=== PATIENT | male | born 1935 | race Caucasian/White ===

== ENCOUNTER 2016-05-03 09:57 | Emergency (ER) | payer MEDICARE ==
[~2016-05-03 09:57] MED LIST: ASPIRIN CHEWABL81 MG PO; ATENOLOL25 MG PO; FOLIC ACID1 MG PO; LIPITOR20 MG PO; NORCO 5-325 TA1 EACH PO; PLAQUENIL200 M1 PO; PREDNISONE5 MG PO; PRILOSEC20 MG PO
[2016-09-30] MEDS ORDERED: CELEBREX200 MG PO (12:46)
[2016-09-30] MEDS ORDERED: LASIX40 MG PO (12:47)
[2016-09-30] MEDS ORDERED: SIMPONI50 MG/0.5 (14:03)
[2016-09-30] MEDS ORDERED: PERCOCET 5/3251 TAB PO (14:04)
[2016-09-30] MEDS ORDERED: MUCINEX 600MG600 MG PO (14:05)
[2016-09-30] MEDS ORDERED: XARELTO10 MG PO (14:05)
[2016-09-30] MEDS ORDERED: PROTONIX 40MG T40 MG PO (14:06)
[2016-09-30] MEDS ORDERED: FLOMAX0.4 MG PO (14:06)
[2016-09-30] MEDS ORDERED: CERTAGEN1 EACH PO (14:06)
[2016-09-30] MEDS ORDERED: FEOSOL325 MG PO (14:07)
[2016-09-30] MEDS ORDERED: DULCOLAX5 MG PO (14:07)
[2016-09-30] MEDS ORDERED: MILK OF MA400 MG/5 M PO (14:07)
[2016-09-30] MEDS ORDERED: SENOKOT-S TABL1 EACH PO (14:08)
[2016-09-30] MEDS ORDERED: LAXATIVE SUPPOS10 MG PR (14:08)
[2016-09-30] MEDS ORDERED: ACETAMINOPHEN325 MG PO (14:09)
== END 2016-05-03 11:51 | disposition home or self-care (01) ==
LOC: FER 09:57
DX: S41.112A Laceration without foreign body of left upper arm, initial encounter (principal); L03.114 Cellulitis of left upper limb; I51.9 Heart disease, unspecified; M06.9 Rheumatoid arthritis, unspecified; E78.5 Hyperlipidemia, unspecified; Z79.899 Other long term (current) drug therapy; Z95.5 Presence of coronary angioplasty implant and graft; W19.XXXA Unspecified fall, initial encounter
CPT/HCPCS: 86403; 87070; 87077; 87186; 87205; 99283

== ENCOUNTER 2016-07-25 14:12 | Emergency (ER) | payer MEDICARE ==
[2016-09-30] MEDS ORDERED: CELEBREX200 MG PO (12:46)
[2016-09-30] MEDS ORDERED: LASIX40 MG PO (12:47)
[2016-09-30] MEDS ORDERED: SIMPONI50 MG/0.5 (14:03)
[2016-09-30] MEDS ORDERED: PERCOCET 5/3251 TAB PO (14:04)
[2016-09-30] MEDS ORDERED: MUCINEX 600MG600 MG PO (14:05)
[2016-09-30] MEDS ORDERED: XARELTO10 MG PO (14:05)
[2016-09-30] MEDS ORDERED: FLOMAX0.4 MG PO (14:06)
[2016-09-30] MEDS ORDERED: PROTONIX 40MG T40 MG PO (14:06)
[2016-09-30] MEDS ORDERED: CERTAGEN1 EACH PO (14:06)
[2016-09-30] MEDS ORDERED: FEOSOL325 MG PO (14:07)
[2016-09-30] MEDS ORDERED: MILK OF MA400 MG/5 M PO (14:07)
[2016-09-30] MEDS ORDERED: DULCOLAX5 MG PO (14:07)
[2016-09-30] MEDS ORDERED: LAXATIVE SUPPOS10 MG PR (14:08)
[2016-09-30] MEDS ORDERED: SENOKOT-S TABL1 EACH PO (14:08)
[2016-09-30] MEDS ORDERED: ACETAMINOPHEN325 MG PO (14:09)
== END 2016-07-25 15:58 | disposition home or self-care (01) ==
LOC: FER 14:12
DX: S41.112A Laceration without foreign body of left upper arm, initial encounter (principal); S41.111A Laceration without foreign body of right upper arm, initial encounter; M06.9 Rheumatoid arthritis, unspecified; Z79.52 Long term (current) use of systemic steroids; Z79.1 Long term (current) use of non-steroidal anti-inflammatories (NSAID); Z79.899 Other long term (current) drug therapy; W19.XXXA Unspecified fall, initial encounter
CPT/HCPCS: 99283

== ENCOUNTER 2020-06-12 09:00 | Inpatient (IN) | payer MEDICARE ==
[~2020-06-12 09:00] MED LIST changes: +ACETAMINOPHEN325 MG PO; +CELEBREX200 MG PO; +CERTAGEN1 EACH PO; +DULCOLAX5 MG PO; +FEOSOL325 MG PO; +FLOMAX0.4 MG PO; +KEFLEX500 MG PO; +LASIX40 MG PO; +LAXATIVE SUPPOS10 MG PR; +MILK OF MA400 MG/5 M PO; +MUCINEX 600MG600 MG PO; +PERCOCET 5/3251 TAB PO; +PROTONIX 40MG T40 MG PO; +SENOKOT-S TABL1 EACH PO; +SIMPONI50 MG/0.5; +XARELTO10 MG PO
[2020-06-12 10:06] LABS: BASOPHIL 0.9 % (0-2); EOSINOPHIL 2.9 % (0-7); HCT 36.3 % (42.0-52.0); HGB 12.6 g/dl (13.2-18.0); LYMPHOCYTE 6.8 % (15-48); MCH 31.9 pg (25.0-31.0); MCHC 34.7 g/dL (32.0-36.0); MCV 91.9 fL (78.0-100.0); MONOCYTE 6.7 % (0-12); MPV 9.6 fL (6.0-9.5); NEUTROPHIL 82.5 % (41-80); NRBC 0; PLT 161 K/uL (150-400); RBC 3.95 M/uL (4.70-6.00); RDW 13.1 % (11.5-14.0); WBC 9.3 K/uL (4.0-10.5)
[2020-06-12 10:23] LABS: INR 1.22 (0.9-1.2); PROTHROMBIN TIME 14.6 SECONDS (11.4-13.6)
[2020-06-12 10:24] LABS: PTT 32.3 SECONDS (22.2-34.7)
[2020-06-12 10:37] LABS: BILIRUBIN - TOTAL 0.7 mg/dL (0.2-1.0); BUN/CREAT RATIO (CALC) 29.8 RATIO; CREATININE 0.84 mg/dL (0.67-1.17); GLOBULIN (CALCULATION) 4.2 g/dL; POTASSIUM 3.7 mmol/L (3.5-5.1); TOTAL PROTEIN 7.2 g/dL (6.4-8.2)
[2020-06-12] MEDS ORDERED: PRILOSEC20 MG PO (11:16)
[2020-06-12] MEDS ORDERED: FOLIC ACID1 MG PO (11:18)
[2020-06-12] MEDS ORDERED: HYDROXYCHLOROQ200 MG PO (11:19)
[2020-06-12] MEDS ORDERED: LIPITOR20 MG PO (11:19)
[2020-06-12] MEDS ORDERED: ASPIRIN EC81 MG PO (11:20)
[2020-06-12] MEDS ORDERED: ATENOLOL25 MG PO (11:20)
[2020-06-12] MEDS ORDERED: SIMPONI50 MG/0.5 IV (11:21)
[2020-06-12 23:07] LABS: BILIRUBIN NEGATIVE (NEGATIVE); BLOOD 2+ Ery/uL (NEGATIVE); CLARITY CLEAR (CLEAR); COLOR YELLOW (YELLOW); GLUCOSE (U) NORMAL (NORMAL); LEUKOCYTES NEGATIVE Leu/uL (NEGATIVE); NITRITE NEGATIVE (NEGATIVE); PROTEIN NEGATIVE (NEGATIVE); pH 7.5 (5.0-9.0)
[2020-06-12 23:15] LABS: BACTERIA TRACE; SQUAMOUS EPITHELIAL CELLS RARE; URINARY RBC 20-50; URINARY WBC RARE
[2020-06-13 06:10] LABS: HGB 13.2 g/dl (13.2-18.0); MCH 31.7 pg (25.0-31.0); MCHC 33.8 g/dL (32.0-36.0); MCV 93.5 fL (78.0-100.0); MPV 9.4 fL (6.0-9.5); RBC 4.17 M/uL (4.70-6.00); RDW 13.3 % (11.5-14.0); WBC 8.5 K/uL (4.0-10.5)
[2020-06-13 06:29] LABS: BUN/CREAT RATIO (CALC) 19.7 RATIO; CREATININE 0.76 mg/dL (0.67-1.17); POTASSIUM 4.3 mmol/L (3.5-5.1)
[2020-06-16 05:51] LABS: HCT 30.8 % (42.0-52.0); HGB 10.7 g/dl (13.2-18.0); MCHC 34.7 g/dL (32.0-36.0); MCV 92.2 fL (78.0-100.0); MPV 9.8 fL (6.0-9.5); RBC 3.34 M/uL (4.70-6.00); RDW 13.3 % (11.5-14.0); WBC 9.5 K/uL (4.0-10.5)
[2020-06-16 06:09] LABS: BUN/CREAT RATIO (CALC) 19.2 RATIO; CREATININE 0.73 mg/dL (0.67-1.17); POTASSIUM 3.2 mmol/L (3.5-5.1)
[2020-06-17 11:00] LABS: HCT 33.9 % (42.0-52.0); HGB 11.8 g/dl (13.2-18.0); MCH 31.7 pg (25.0-31.0); MCHC 34.8 g/dL (32.0-36.0); MCV 91.1 fL (78.0-100.0); MPV 9.8 fL (6.0-9.5); RBC 3.72 M/uL (4.70-6.00); RDW 13.1 % (11.5-14.0); WBC 12.6 K/uL (4.0-10.5)
[2020-06-17 11:23] LABS: BUN/CREAT RATIO (CALC) 21.9 RATIO; CREATININE 0.64 mg/dL (0.67-1.17); POTASSIUM 3.7 mmol/L (3.5-5.1)
[2020-06-18 07:05] LABS: BASOPHIL 0.5 % (0-2); EOSINOPHIL 1.5 % (0-7); HGB 10.4 g/dl (13.2-18.0); LYMPHOCYTE 5.7 % (15-48); MCHC 33.5 g/dL (32.0-36.0); MCV 92.5 fL (78.0-100.0); MONOCYTE 6.8 % (0-12); MPV 9.5 fL (6.0-9.5); NRBC 0; PLT 196 K/uL (150-400); RBC 3.35 M/uL (4.70-6.00); RDW 13.3 % (11.5-14.0); WBC 13.2 K/uL (4.0-10.5)
[2020-06-18 07:34] LABS: BUN/CREAT RATIO (CALC) 26.8 RATIO; CREATININE 0.71 mg/dL (0.67-1.17); POTASSIUM 3.8 mmol/L (3.5-5.1)
--- NOTE | 2020-06-18 12:47 | NUR ---
MET WITH PT. AND DAUGHTER, EITAN ([phone]. AVISED PT. THAT THE PHYSICAL THERAPIST HAD RECOMMENDED SENIOR CARE FACILITY. PT. CHOSE [facility]. REFERRAL MADE THROUGH [facility].
--- NOTE | 2020-06-18 12:53 | NUR ---
TC TO LIZ AT [facility]. ADVISED OF REFERRAL SENT THROUGH [facility].
--- NOTE | 2020-06-18 15:50 | NUR ---
TC FROM LIZ AT [facility], THEY CANNOT ACCEPT [facility]. CONTACTED [facility] THEY ARE ON A BED HOLD DUE TO COVID. CONTACTED DAUGHTER AND ADVISED HER THAT [facility]. DAUGHTER AGREED TO SEND A REFERRAL TO [facility]. TC TO AMELIE ADVISED SENDING REFERRAL THROUGH [facility]. PER AMELIE THEY DO ACCEPT [facility] AND HAVE A MALE BED.
[2020-06-19 14:04] LABS: BASOPHIL 0.6 % (0-2); EOSINOPHIL 3.5 % (0-7); HCT 36.8 % (42.0-52.0); HGB 11.7 g/dl (13.2-18.0); LYMPHOCYTE 10.9 % (15-48); MCH 30.6 pg (25.0-31.0); MCHC 31.8 g/dL (32.0-36.0); MCV 96.3 fL (78.0-100.0); MONOCYTE 6.6 % (0-12); MPV 9.4 fL (6.0-9.5); NEUTROPHIL 77.8 % (41-80); NRBC 0; PLT 252 K/uL (150-400); RBC 3.82 M/uL (4.70-6.00); RDW 13.3 % (11.5-14.0)
[2020-06-19 14:25] LABS: BUN/CREAT RATIO (CALC) 21.4 RATIO; CREATININE 0.7 mg/dL (0.67-1.17); POTASSIUM 3.4 mmol/L (3.5-5.1)
[2020-06-20 05:46] LABS: BASOPHIL 0.8 % (0-2); EOSINOPHIL 9.8 % (0-7); HCT 30.3 % (42.0-52.0); HGB 10.1 g/dl (13.2-18.0); LYMPHOCYTE 15.3 % (15-48); MCH 31.4 pg (25.0-31.0); MCHC 33.3 g/dL (32.0-36.0); MCV 94.1 fL (78.0-100.0); MONOCYTE 6.8 % (0-12); MPV 9.7 fL (6.0-9.5); NEUTROPHIL 66.6 % (41-80); NRBC 0; PLT 208 K/uL (150-400); RBC 3.22 M/uL (4.70-6.00); RDW 13.4 % (11.5-14.0); WBC 8.3 K/uL (4.0-10.5)
[2020-06-20 06:10] LABS: BUN/CREAT RATIO (CALC) 16.9 RATIO; CREATININE 0.77 mg/dL (0.67-1.17); POTASSIUM 3.7 mmol/L (3.5-5.1)
--- NOTE | 2020-06-20 08:27 | NUR ---
ANGI KINSEY FROM [facility]. PT. AUTH HAS BEEN RECEIVED FROM Ada AND PT. MAY ADMIT. REPORT NUMBER IS [phone] AND FAX NUMBER IS [phone].
[2020-06-20] MEDS ORDERED: FEOSOL325 MG PO (08:32)
[2020-06-20] MEDS ORDERED: STIMULANT LAXA1 EACH PO (08:32)
[2020-06-20] MEDS ORDERED: ACETAMINOPHEN325 MG PO (08:32)
[2020-06-20] MEDS ORDERED: COLACE100 MG PO (08:32)
[2020-06-20] MEDS ORDERED: FUROSEMIDE 40MG40 MG PO (08:32)
[2020-06-20] MEDS ORDERED: DULCOLAX5 MG PO (08:32)
[2020-06-20] MEDS ORDERED: LAXATIVE SUPPOS10 MG PR (08:32)
[2020-06-20] MEDS ORDERED: MILK OF MA400 MG/5 M PO (08:32)
[2020-06-20] MEDS ORDERED: THERA TABLET400 MCG PO (08:32)
[2020-06-20] MEDS ORDERED: XARELTO10 MG PO (08:32)
[2020-06-20] MEDS ORDERED: POTASSIUM CHLO10 ME1 PO (08:32)
--- NOTE | 2020-06-20 09:10 | NUR ---
TC TO EITAN, DAUGHTER. ADVISED THAT MR. TALLEY HAD BEEN APPROVED BY HIS INSURANCE FOR [employer]. SHE PLANS TO BE HERE BY 10:00 A.M. TO FOLLOW HER FATHER TO THE FACILITY SO THAT SHE MAY COMPLETE PAPERWORK.
[2020-06-20] MEDS ORDERED: OXYCODONE-ACET1 EAC1 PO (10:36)
== END 2020-06-20 14:00 | DRG 521 ==
LOC: FER 09:00 → FMS 10:06
PROVIDERS: Emergency Medicine; Legal Medicine; Nurse Practitioner Adult Health; ADMIT Hospitalist
PROC: 0SRB04A Replacement of Left Hip Joint with Ceramic on Polyethylene Synthetic Substitute, Uncemented, Open Approach (ICD-10-PCS; principal; 2020-06-17 11:45)
DX: S72.012A Unspecified intracapsular fracture of left femur, initial encounter for closed fracture (principal); I50.31 Acute diastolic (congestive) heart failure; D62 Acute posthemorrhagic anemia; Z68.1 Body mass index [BMI] 19.9 or less, adult; L89.151 Pressure ulcer of sacral region, stage 1; W01.0XXA Fall on same level from slipping, tripping and stumbling without subsequent striking against object, initial encounter; Y92.009 Unspecified place in unspecified non-institutional (private) residence as the place of occurrence of the external cause; M06.9 Rheumatoid arthritis, unspecified; E78.5 Hyperlipidemia, unspecified; K21.9 Gastro-esophageal reflux disease without esophagitis; I25.10 Atherosclerotic heart disease of native coronary artery without angina pectoris; Z95.5 Presence of coronary angioplasty implant and graft; Z87.891 Personal history of nicotine dependence; I11.0 Hypertensive heart disease with heart failure; I50.9 Heart failure, unspecified; I35.1 Nonrheumatic aortic (valve) insufficiency; Z79.899 Other long term (current) drug therapy; Z79.82 Long term (current) use of aspirin; R63.6 Underweight; Z20.822 Contact with and (suspected) exposure to COVID-19; K59.00 Constipation, unspecified; E87.6 Hypokalemia; L89.621 Pressure ulcer of left heel, stage 1; L89.611 Pressure ulcer of right heel, stage 1; I25.2 Old myocardial infarction
CPT/HCPCS: 36415; 71045; 73501; 73502; 76000; 80048; 80053; 81001; 83880; 84484; 85025; 85610; 85730; 86850; 86900; 86901; 87040; 88305; 93005; 94010; 97162; 97166; 97530; 97530-GP; 97535; C1776; J0171; J0697; J1200; J1885; J1940; J2270; J2704; J2795; J3010; J7030; J7120; U0002